=== PATIENT | female | born 1945 | race Caucasian/White ===

== ENCOUNTER → 2018-05-08 | Outpatient (CLI) | payer MEDICARE, OTHER | LOC: M.RAD 14:33 | DX: Z12.31 Encounter for screening mammogram for malignant neoplasm of breast (principal) ==

== ENCOUNTER 2019-03-21 18:05 | Emergency (ER) | payer MEDICARE, OTHER ==
[~2019-03-21] VITALS: Ht 170.2 cm; Wt 90.7 kg
[2019-03-21] MEDS ORDERED: CIPROFLOXIN HC2.5 M1 OTIC (19:06)
[2019-03-21 19:37] VITALS: BP 114/64
== END 2019-03-21 19:38 | disposition home or self-care (01) ==
LOC: M.ERS 18:05
DX: T15.11XA Foreign body in conjunctival sac, right eye, initial encounter (principal); W22.8XXA Striking against or struck by other objects, initial encounter; Y93.89 Activity, other specified; Y92.89 Other specified places as the place of occurrence of the external cause; Y99.8 Other external cause status

== ENCOUNTER → 2019-05-13 | Outpatient (CLI) | payer MEDICARE, OTHER ==
[~2019-05-13] MED LIST: CIPROFLOXIN HC2.5 M1 OTIC
== END ==
LOC: M.RAD 12:22
DX: Z12.31 Encounter for screening mammogram for malignant neoplasm of breast (principal)